=== PATIENT | male | born 1970 | race Caucasian/White ===

== ENCOUNTER 2024-11-11 10:34 | Observation (INO) ==
--- NOTE | 2024-11-11 11:08 | Emergency Department Note ---
ED DC CONDITION Conditon at Discharge Condition at Discharge: Fair Impression & Plan Atrial fibrillation with rapid ventricular response Admission ED Provider Note HPI: History obtained from patient. The patient is a 54-year-old gentleman with history of end-stage renal disease, currently on hemodialysis, who presents the emergency department with chief complaint of tachycardia. Patient states that following his dialysis session today he had some mild shortness of breath and felt like his heart was racing. He was assessed by his molder setter (Dr. Gresham) and he was told to come to the emergency department for further management. On arrival here to the ED the patient is hypotensive at 77/42, heart rate is 128, patient is alert and saturating well on room air on my initial assessment. Patient denies any chest pain. ROS: - Per HPI Differential Diagnosis: Atrial fibrillation with RVR, SVT, WPW, ventricular tachycardia, ACS, sepsis, hypotension after dialysis secondary to fluid shifts, amongst other potential pathologies. *Outpatient medications and allergy history reviewed. PE: General: Alert HEENT: Normocephalic, trachea midline Eyes: Extraocular eye movement is intact, no scleral erythema Pulmonary: Clear to auscultation bilaterally, no wheezing Cardio: Tachycardic rate with irregular rhythm GI: Abdomen is soft to palpation : No suprapubic tenderness MSK: No evidence of trauma or malformation of the extremities, no edema Skin: No evidence of rash Neuro: Alert, no focal deficits Psychiatric: Cooperative INDEPENDENT INTERPRETATIONS: environmental monitoring technician: (As interpreted by myself): - An order was placed for continuous cardiac monitoring - Patient was noted to be in atrial fibrillation with a rate of 131 EKG: (As interpreted by myself): Rate: 145 Rhythm: Atrial fibrillation with RVR Intervals: QTc 528 ms, otherwise within normal limits ST changes: No ST elevation Time: 1058 Chest x-ray: (As interpreted by myself): No acute disease Interventions provided in ED: - IV fluid bolus, IV metoprolol Medical Decision Making: Patient appeared well on arrival however he was noted to be hypotensive, he was given IV fluid bolus. Blood pressure did improve. Patient's heart rate was labile here in the ED, he did have some improvement after a dose of IV metoprolol but did have episodes of tachycardia in the 120s and 130s despite improvement in his blood pressure. Lab work shows no leukocytosis, hemoglobin is stable, platelet count is normal, CMP does not show any evidence of any critical findings, baseline end-stage renal disease is noted. Troponin is mildly elevated at 40. Suspect this is likely demand ischemia in the setting of atrial fibrillation with RVR as opposed to ACS. Patient denies any chest pain. TSH is undetectable, free T4 is within normal limits at 1.4. EKG does not show any acute ischemic changes, does suggest atrial fibrillation with RVR. Patient states he does not have any history of atrial fibrillation. I discussed the patient's presentation with on-call cardiology, Dr. Babb, following our discussion and plan will be for admission. He does recommend the patient be given anticoagulation and recommended Eliquis therefore this was ordered. Patient's presentation was discussed with the on-call midlevel provider for the [facility] and the patient was placed for admission in stable condition for new onset atrial fibrillation with RVR. Patient's heart rate did improve into the low 100s prior to admission Consultants/Discussions held with other healthcare providers: - Cardiology, - Hospitalist, Dr. Zuniga Disposition discussion held by myself with: - Patient * CRITICAL CARE TIME: ( 46 ) minutes - Stabilization of patient with tachyarrhythmia/atrial fibrillation with RVR in addition to hypotension requiring IV fluid resuscitation and rate control medications, time spent at the bedside, interpretation of EKG and other diagnostic studies, discussion with specialty physicians and arrangement of admission. Diagnosis: 1. New onset atrial fibrillation with RVR, acute 2. Fluid responsive hypotension, acute 3. History of end-stage renal disease, on dialysis 4. Elevated high-sensitivity troponin, acute Disposition: Admission Rhys Juárez DO Emergency Medicine Past Med/Surg History Problem List (Updated 11/11/24 @ 15:12 by Rhys Juárez DO) Atrial fibrillation with rapid ventricular response (Acute) Social History Smoking Status: Current every day smoker Tobacco Type: Cigarettes Preferred Language: Kittitian Feels Safe at Home: Yes Allergies Allergies Allergy/AdvReac Type Severity Reaction Status Date / Time No Known Allergies Allergy Unverified 11/11/24 13:30 Home Meds Home Medications Medication Instructions Recorded Confirmed bumetanide 2 mg tablet 4 mg PO DAILY 11/11/24 11/11/24 calcium acetate(phosphat bind) 667 266 mg PO WM 08/18/25 08/18/25 mg capsule calcium acetate(phosphat bind) 667 1,337 mg PO DIRECTED 11/11/24 11/11/24 mg tablet carvedilol 25 mg tablet 25 mg PO BID 11/11/24 11/11/24 cinacalcet 90 mg tablet 90 mg PO DAILY 11/11/24 11/11/24 furosemide 40 mg tablet 40 mg PO DAILY 11/11/24 11/11/24 gabapentin 100 mg capsule 100 mg PO DAILY 11/11/24 11/11/24 levothyroxine 25 mcg tablet 25 mcg PO DAILY 11/11/24 11/11/24 olmesartan 20 mg tablet 20 mg PO DAILY 11/11/24 11/11/24 omeprazole 20 mg capsule,delayed 20 mg PO DAILY 11/11/24 11/11/24 release sevelamer carbonate 800 mg tablet 1,600 mg PO USEASDIRECTD 11/11/24 11/11/24 sevelamer carbonate 800 mg tablet 3,200 mg PO WM 11/11/24 11/11/24 tiotropium bromide 2.5 1 inh inhalation DAILY PRN sob 11/11/24 11/11/24 mcg/actuation mist for inhalation (Spiriva Respimat) Results & Data (ED) Vital Signs Vital Signs - 24 hr 11/11/24 10:48 11/11/24 10:58 11/11/24 11:02 Temperature 36.7 C Temperature Source Temporal Artery Scan Pulse Rate 120 H Pulse Rate [Left Apical] 125 H Pulse Rate from SpO2 Sensor Respiratory Rate 20 18 Respiratory Effort / Characteristics Non-Labored Spontaneous Non-Labored Spontaneous Respiratory Depth Normal Normal Respiratory Pattern Regular Regular Blood Pressure 74/42 L Blood Pressure [Right Arm] 77/42 L 94/71 L Blood Pressure Mean 52 Blood Pressure Mean [Right Arm] 53 78 Pulse Oximetry 100 100 Oxygen Delivery Method Room Air Room Air Sepsis Recent Fever Within 48 Hours No Sepsis New/Unexplained Change in Mental Status No Sepsis Action Taken by Nursing No Action Required 11/11/24 11:02 11/11/24 11:09 11/11/24 11:21 Temperature Temperature Source Pulse Rate 128 H 128 H 121 H Pulse Rate [Left Apical] Pulse Rate from SpO2 Sensor Respiratory Rate 22 15 Respiratory Effort / Characteristics Respiratory Depth Respiratory Pattern Blood Pressure 107/59 L 94/64 L Blood Pressure [Right Arm] Blood Pressure Mean 75 74 Blood Pressure Mean [Right Arm] Pulse Oximetry 100 100 Oxygen Delivery Method Room Air Room Air Sepsis Recent Fever Within 48 Hours Sepsis New/Unexplained Change in Mental Status Sepsis Action Taken by Nursing 11/11/24 11:33 11/11/24 11:53 11/11/24 12:00 Temperature Temperature Source Pulse Rate 115 H 117 H 111 H Pulse Rate [Left Apical] Pulse Rate from SpO2 Sensor Respiratory Rate 18 23 Respiratory Effort / Characteristics Respiratory Depth Respiratory Pattern Blood Pressure 92/58 L 86/55 L 88/70 L Blood Pressure [Right Arm] Blood Pressure Mean 69 76 Blood Pressure Mean [Right Arm] Pulse Oximetry 97 97 Oxygen Delivery Method Room Air Room Air Sepsis Recent Fever Within 48 Hours Sepsis New/Unexplained Change in Mental Status Sepsis Action Taken by Nursing 11/11/24 12:12 11/11/24 12:21 11/11/24 12:27 Temperature Temperature Source Pulse Rate 123 H 124 H 132 H Pulse Rate [Left Apical] Pulse Rate from SpO2 Sensor Respiratory Rate 20 16 17 Respiratory Effort / Characteristics Respiratory Depth Respiratory Pattern Blood Pressure 96/72 L 121/90 Blood Pressure [Right Arm] Blood Pressure Mean 80 100 Blood Pressure Mean [Right Arm] Pulse Oximetry 94 94 94 Oxygen Delivery Method Room Air Room Air Room Air Sepsis Recent Fever Within 48 Hours Sepsis New/Unexplained Change in Mental Status Sepsis Action Taken by Nursing 11/11/24 12:30 11/11/24 12:45 11/11/24 12:54 Temperature Temperature Source Pulse Rate 111 H 109 H 126 H Pulse Rate [Left Apical] Pulse Rate from SpO2 Sensor Respiratory Rate 16 17 13 Respiratory Effort / Characteristics Respiratory Depth Respiratory Pattern Blood Pressure 117/88 110/71 Blood Pressure [Right Arm] Blood Pressure Mean 91 90 Blood Pressure Mean [Right Arm] Pulse Oximetry 95 96 98 Oxygen Delivery Method Room Air Room Air Room Air Sepsis Recent Fever Within 48 Hours Sepsis New/Unexplained Change in Mental Status Sepsis Action Taken by Nursing 11/11/24 12:57 11/11/24 13:00 11/11/24 13:06 Temperature Temperature Source Pulse Rate 110 H 125 H Pulse Rate [Left Apical] Pulse Rate from SpO2 Sensor Respiratory Rate 14 21 Respiratory Effort / Characteristics Respiratory Depth Respiratory Pattern Blood Pressure 105/74 Blood Pressure [Right Arm] Blood Pressure Mean 80 Blood Pressure Mean [Right Arm] Pulse Oximetry 97 98 Oxygen Delivery Method Room Air Room Air Sepsis Recent Fever Within 48 Hours Sepsis New/Unexplained Change in Mental Status Sepsis Action Taken by Nursing 11/11/24 13:12 11/11/24 13:15 11/11/24 13:15 Temperature Temperature Source Pulse Rate 111 H 116 H Pulse Rate [Left Apical] Pulse Rate from SpO2 Sensor 104 H 114 H Respiratory Rate 17 19 Respiratory Effort / Characteristics Respiratory Depth Respiratory Pattern Blood Pressure 95/66 L Blood Pressure [Right Arm] Blood Pressure Mean 71 Blood Pressure Mean [Right Arm] Pulse Oximetry 92 95 Oxygen Delivery Method Sepsis Recent Fever Within 48 Hours Sepsis New/Unexplained Change in Mental Status Sepsis Action Taken by Nursing 11/11/24 13:18 11/11/24 13:24 11/11/24 13:27 Temperature Temperature Source Pulse Rate 115 H 121 H Pulse Rate [Left Apical] Pulse Rate from SpO2 Sensor 111 H 111 H Respiratory Rate 17 12 Respiratory Effort / Characteristics Respiratory Depth Respiratory Pattern Blood Pressure 103/67 Blood Pressure [Right Arm] Blood Pressure Mean 76 Blood Pressure Mean [Right Arm] Pulse Oximetry 95 100 Oxygen Delivery Method Sepsis Recent Fever Within 48 Hours Sepsis New/Unexplained Change in Mental Status Sepsis Action Taken by Nursing 11/11/24 13:36 Temperature Temperature Source Pulse Rate 108 H Pulse Rate [Left Apical] Pulse Rate from SpO2 Sensor 125 H Respiratory Rate 14 Respiratory Effort / Characteristics Respiratory Depth Respiratory Pattern Blood Pressure Blood Pressure [Right Arm] Blood Pressure Mean Blood Pressure Mean [Right Arm] Pulse Oximetry 98 Oxygen Delivery Method Sepsis Recent Fever Within 48 Hours Sepsis New/Unexplained Change in Mental Status Sepsis Action Taken by Nursing Laboratory Data 11/11/24 11:00 11/11/24 11:00 Lab Results 11/11/24 11/11/24 11/11/24 Range/Units 11:00 11:05 12:48 WBC 5.81 (4.8-10.8) K/ul RBC 3.84 L (4.70-6.10) M/uL Hgb 11.8 L (14.0-18.0) g/dl POC Hgb 11.9 L (14.0-18.0) g/dl Hct 35.4 L (42.0-52.0) % POC Hct 35 L (42-52) % MCV 92.2 (80.0-100.0) fL MCH 30.7 (25.0-34.0) pg MCHC 33.3 (32.0-36.0) g/dL RDW Std Deviation 49.2 H (36.4-46.3) fL RDW Coeff of Lorenza 14.6 H (11.5-14.5) % Plt Count 157 (130-400) K/uL MPV 11.0 (9.4-12.4) fL Immature Gran % (Auto) 0.2 % Neut % (Auto) 73.6 % Lymph % (Auto) 20.3 % [place] % (Auto) 4.0 % Eos % (Auto) 1.4 % Baso % (Auto) 0.5 % Neut # (Auto) 4.28 (1.40-6.50) K/uL Lymph # (Auto) 1.18 L (1.20-3.40) K/uL [place] # (Auto) 0.23 (0.11-0.59) K/uL Eos # (Auto) 0.08 (0.00-0.50) K/uL Baso # (Auto) 0.03 (0.00-0.20) K/uL Immature Gran # (Auto) 0.01 (0.01-0.20) K/uL POC Sodium 137 (135-144) mmol/L Sodium 137 (136-145) mmol/L POC Potassium 3.4 (3.3-5.0) mmol/L Potassium 3.4 L (3.5-5.1) mmol/L POC Chloride 89 L (101-112) mmol/L Chloride 89 L (98-107) mmol/L Carbon Dioxide 38 H (21-32) mmol/L POC Total CO2 33 H (24-31) mmol/L Anion Gap 10 (3-11) POC Anion Gap 19.0 (16-25) mmol/L POC BUN 21 H (7-18) mg/dl BUN 23 (6-23) mg/dl Creatinine 6.19 H* (0.6-1.4) mg/dl POC Creatinine 6.3 H* (0.6-1.3) mg/dl Est Cr Clr Drug Dosing 16.5 ml/min eGFR 10.10 BUN/Creatinine Ratio 3.7 L (10-20) Glucose 153 H (70-99(Fasting)) mg/dl POC Glucose (other) 152 H (70-99) mg/dl Calcium 8.7 (8.6-10.3) mg/dl POC Ioniz Calcium Roland 0.96 L (1.12-1.32) mmol/l Magnesium 2.5 H (1.7-2.4) mg/dl Total Bilirubin 0.6 (0.2-1.0) mg/dl AST 8 L (13-39) U/L ALT 8 (7-52) U/L Alkaline Phosphatase 121 H (34-104) U/L Troponin I High Sens 40.5 H 34.9 H (0-20) pg/ml Total Protein 7.6 (6.0-8.3) gm/dl Albumin 4.2 (3.4-5.0) gm/dl Globulin 3.4 (2.5-4.0) gm/dl Albumin/Globulin Ratio 1.2 (0.9-2) Lipase 27 (11-82) U/L TSH < 0.010 L (0.300-4.500) uIu/ml Free T4 1.44 (0.61-1.60) ng/dl Administered Medications Discontinued Medications Apixaban (Apixaban 5 Mg Tablet) 5 mg PO ONE ONE Stop: 11/11/24 13:08 Last Admin: 11/11/24 14:17 Dose: 5 mg Documented By: GABRIELE Sodium Chloride (Nss) 1,000 mls @ 999 mls/hr IV .Q1H1M STA Stop: 11/11/24 12:01 Last Infusion: 11/11/24 11:59 Dose: Infused Documented By: Infusion: 11/11/24 11:45 Dose: 0 mls/hr Documented By: [facility] Admin: 11/11/24 11:09 Dose: 999 mls/hr Documented By: [facility] Metoprolol Tartrate (Metoprolol Tartrate 1 Mg/Ml Vial) 5 mg IV NOW STA Stop: 11/11/24 11:18 Last Admin: 11/11/24 11:20 Dose: 5 mg Documented By: [facility] Imaging Data Radiologist's Impression: Chest X-Ray 11/11/24 11:01 XR chest 1V portable CLINICAL HISTORY: Chest pain, nonspecific COMPARISON STUDY: None FINDINGS: Heart size and pulmonary vasculature are normal. No consolidation or pleural effusion. No pneumothorax. IMPRESSION: No acute findings. ACT 112: Negative or not required by law. Electronically signed by: Ervin Chaidez M.D. 11/11/2024 11:14 AM Discharge Plan Visit Data Chief Complaint: Cardiac Assessment Stated Complaint: A FIB, REF BY DOC ED Provider: Rhys Juárez Discharge Problem: Atrial fibrillation with rapid ventricular response Patient Disposition: Admitted As Inpatient Condition: Fair Discharge Instructions Interventions: ED Discharge Assessment Last Done: 11/11/24 14:32
[2024-11-11] MEDS: SODIUM CHLORIDE 0.9% 1,000 ML IV STA (11:09)
--- NOTE | 2024-11-11 11:16 | XRay Report ---
XR chest 1V portable CLINICAL HISTORY: Chest pain, nonspecific COMPARISON STUDY: None FINDINGS: Heart size and pulmonary vasculature are normal. No consolidation or pleural effusion. No p neumothorax. IMPRESSION: No acute findings. ACT 112: Negative or not required by law. Electronically signed by: Ervin Chaidez M.D. 11/11/2024 11:14 AM
[2024-11-11] MEDS: METOPROLOL TARTRATE 1 MG/ML VIAL IV STA (11:20)
[2024-11-11 11:37] LABS: Hematocrit (blood only) 35.4 % (42.0-52.0); Hemoglobin 11.8 g/dl (14.0-18.0); Immature Granulocytes # (auto) 0.01 K/uL (0.01-0.20); Immature Granulocytes % (auto) 0.2 %; Mean Corpuscular Hemoglobin 30.7 pg (25.0-34.0); Mean Corpuscular Volume 92.2 fL (80.0-100.0); Platelet Count 157 K/uL (130-400); RDW Standard Deviation 49.2 fL (36.4-46.3); Red Blood Count 3.84 M/uL (4.70-6.10); White Blood Count 5.81 K/ul (4.8-10.8)
[2024-11-11 12:11] LABS: Alanine Aminotransferase 8 U/L (7-52); Albumin Globulin Ratio 1.2 (0.9-2); Alkaline Phosphatase 121 U/L (34-104); Anion Gap 10 (3-11); Bilirubin,Total 0.6 mg/dl (0.2-1.0); Blood Urea Nitrogen 23 mg/dl (6-23); Calcium 8.7 mg/dl (8.6-10.3); Carbon Dioxide 38 mmol/L (21-32); Chloride 89 mmol/L (98-107); Creatinine Clr Calc Pharmacy 16.5 ml/min; Globulin 3.4 gm/dl (2.5-4.0); Glucose 153 mg/dl (70-99(Fasting)); Lipase 27 U/L (11-82); Magnesium 2.5 mg/dl (1.7-2.4); Potassium 3.4 mmol/L (3.5-5.1); Sodium 137 mmol/L (136-145); Thyroid Stimulating Hormone < 0.010 uIu/ml (0.300-4.500); Total Protein 7.6 gm/dl (6.0-8.3)
--- NOTE | 2024-11-11 13:17 | History & Physical Report ---
"Date of Service November 11, 2024 Assessment & Plan (1) Atrial fibrillation with rapid ventricular response: (2) Elevated troponin: (3) End-stage renal disease on hemodialysis: (4) History of gastric ulcer: Plan Dixon is a 54M with PMHx of ESRD of Dialysis, hx of gastric ulcer and HTN who presents with new onset afib RVR. #Afib RVR | Elevated troponin New onset - EKG AFIB RVR rate 145 Troponin peaked at 40, suspect demand ischemia plus poor renal clearance from afib RVR Started on Eliquis Cardiology consulted - given metoprolol and digoxin. Stopped carvedilol. Consult note pending TSH low, T4 normal - continue synthroid #ESRD on Dialysis Nephrology consulted - follows with Dr. Bowers, dialysis diet, nephrocap daily Continue Phosphate binder, cinacalcet and renvela Continue Bumex and lasix #HTN Continue Carvedilol Hold amlodipine and olmesartan with hypotension, room to change rate control if needed #hx of gastric ulcer continue PPI monitor for bleeding with initation of quinn Dispo: admit to PCU dvt proh: eliquis History of Present Illness Chief Complaint: afib RVR Primary Care Provider: NO PCP Dixon is a 54M with PMHx of ESRD of Dialysis, and HTN who presents with new onset afib RVR. Reports that his watch was alerting him to abnormal HR on monday. Did feel lightheaded with position changes during this also with poor appetite. Denies hx of afib. Reports in the ER he is feeling fine and reluctant to stay overnight in the hospital. Denies CP or shortness of breath. torsten from [place] works locally in [employer]. ER course: Eliquis PO 5mg x 1 Metoprolol 5mg IV Allergies Allergy/AdvReac Type Severity Reaction Status Date / Time No Known Allergies Allergy Unverified 11/11/24 13:30 Home Medications Medication Instructions Recorded Confirmed Type bumetanide 2 mg tablet 4 mg PO DAILY 11/11/24 11/11/24 History calcium acetate(phosphat bind) 667 266 mg PO WM 11/11/24 11/11/24 History mg capsule calcium acetate(phosphat bind) 667 1,337 mg PO DIRECTED 11/11/24 11/11/24 History mg tablet carvedilol 25 mg tablet 25 mg PO BID 11/11/24 11/11/24 History cinacalcet 90 mg tablet 90 mg PO DAILY 11/11/24 11/11/24 History furosemide 40 mg tablet 40 mg PO DAILY 11/11/24 11/11/24 History gabapentin 100 mg capsule 100 mg PO DAILY 11/11/24 11/11/24 History levothyroxine 25 mcg tablet 25 mcg PO DAILY 11/11/24 11/11/24 History olmesartan 20 mg tablet 20 mg PO DAILY 11/11/24 11/11/24 History omeprazole 20 mg capsule,delayed 20 mg PO DAILY 11/11/24 11/11/24 History release sevelamer carbonate 800 mg tablet 1,600 mg PO USEASDIRECTD 11/11/24 11/11/24 History sevelamer carbonate 800 mg tablet 3,200 mg PO WM 11/11/24 11/11/24 History tiotropium bromide 2.5 1 inh inhalation DAILY PRN sob 11/11/24 11/11/24 History mcg/actuation mist for inhalation (Spiriva Respimat) Past Med/Surg History Problem List (Updated 11/11/24 @ 17:20 by Juwan Pacheco MD) Iron deficiency anemia Elevated troponin Abdominal hernia as complication of peritoneal dialysis History of gastric ulcer Hypothyroidism End-stage renal disease on hemodialysis Atrial fibrillation with rapid ventricular response (Acute) Social History Smoking Status: Current every day smoker Tobacco Type: Cigarettes Hx Alcohol Use: No Hx Substance Use: No Preferred Language: Chadian Plumber Cub Required: No Beliefs That Will Affect Care: None Current Living Situation: Alone Other Information That Helps Us Care for You: No Feels Safe at Home: Yes Safety Concerns: Feels Safe At This Time Assistive Devices: Glasses Review of Systems Review of Systems: All systems reviewed & are unremarkable except as noted in Subjective Physical Exam Physical Exam: General: NAD, VS as above Resp: normal respiratory effort, lungs clear to auscultation CV: afib, rates 120s , no murmur, Abd: normal bowel sounds, non tender, no hepatosplenomegaly Extremities: Moves all extremities, no LE edema Neuro: A&O x3, Results & Data Results & Data Vital Signs (Past 12 Hours) Vital Signs Temp Pulse Pulse Resp BP BP Pulse Ox 11/11/24 13:06 125 H 21 98 11/11/24 13:00 105/74 11/11/24 12:57 110 H 14 97 11/11/24 12:54 126 H 13 98 11/11/24 12:45 109 H 17 110/71 96 11/11/24 12:30 111 H 16 117/88 95 11/11/24 12:27 132 H 17 94 11/11/24 12:21 124 H 16 121/90 94 11/11/24 12:12 123 H 20 96/72 L 94 11/11/24 12:00 111 H 23 88/70 L 97 11/11/24 11:53 117 H 86/55 L 11/11/24 11:33 115 H 18 92/58 L 97 11/11/24 11:21 121 H 15 94/64 L 100 11/11/24 11:09 128 H 22 107/59 L 100 11/11/24 11:02 128 H 11/11/24 11:02 125 H 18 94/71 L 100 11/11/24 10:58 77/42 L 11/11/24 10:48 98.1 F 120 H 20 74/42 L 100 O2 Del Method 11/11/24 13:06 Room Air 11/11/24 13:00 11/11/24 12:57 Room Air 11/11/24 12:54 Room Air 11/11/24 12:45 Room Air 11/11/24 12:30 Room Air 11/11/24 12:27 Room Air 11/11/24 12:21 Room Air 11/11/24 12:12 Room Air 11/11/24 12:00 Room Air 11/11/24 11:53 11/11/24 11:33 Room Air 11/11/24 11:21 Room Air 11/11/24 11:09 Room Air 11/11/24 11:02 11/11/24 11:02 Room Air 11/11/24 10:58 11/11/24 10:48 Room Air Laboratory Results cbc and chemistry reviewed trop reviewed TSH reviewed Supervising Physician Co-Signing Physician Notes The patient was not seen by me. The chart was reviewed. Case discussed with PAOLA Gonzáles. Agree with assessment and plan PG Care Time/CCT Total # of Minutes Spent Total Time Spent with Patient: Total time spent is greater than 50% in coordination of care (as documented) at patient's floor/unit and/or counseling patient: Coding Level of Care Code 04183 INT INP/OBS CARE MIN Diagnoses Atrial fibrillation with rapid ventricular response I48.91 Elevated troponin R79.89 End-stage renal disease on hemodialysis N18.6; Z99.2 History of gastric ulcer Z87.11"
[2024-11-11] MEDS: APIXABAN 5 MG TABLET PO ONE (14:17)
[2024-11-11] MEDS ORDERED: ACETAMINOPHEN 325 MG TAB PO PRN (15:21)
[2024-11-11] MEDS ORDERED: POLYETHYLENE (MIRALAX) 17 GM PACK PO PRN (15:21)
--- NOTE | 2024-11-11 16:42 | Cardiology Consultation ---
Date of Consultation November 11, 2024 Assessment & Plan (1) Atrial fibrillation with rapid ventricular response: (2) Anticoagulant long-term use: (3) Elevated troponin: Plan 1. Atrial fibrillation: He presents with what appears to be relatively recent onset of atrial fibrillation at a rapid heart rate. Based on symptoms it seems that it is at least 3 days in duration, possibly longer. It may also be paroxysmal although at rest in the hospital in bed he is not aware of the rhythm so when he feels that he is not having the arrhythmia he may still be having it. He has not had paroxysmal atrial fibrillation in the hospital, so it may be persistent. At this point I would try rate control, despite some degree of hypotension I would like to get him on beta-blockers for rate control and I am going to switch from carvedilol to metoprolol succinate. I will make that swi tch this evening at a roughly comparable dose but we may get better rate control with that. I am also going to add digoxin to his regimen. 2. Anticoagulation: He will need long-term anticoagulation, I agree with the use of Eliquis. 3. Elevated troponin: His troponin is minimally elevated, but we may need to investigate it, as far as I know he does not have a history of coronary artery disease but certainly could have it. 4. Hypotension, his blood pressure is somewhat low which is unusual for him based on his history, he is on a number of antihypertensives and this may be related to his atrial arrhythmia. I would like to get an echocardiogram. History of Present Illness Reason for Consultation: Atrial fibrillation Attending Physician: Rudy Zuniga MD History of Present Illness This is a 54-year-old male who splits his time between [place] when here (he works on [employer] so spends most of his time away from his home in [place]). 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 In general his blood pressure is reasonably well-controlled, sometimes high, but generally not low until recently. He has noticed an increased heart rate possibly for 2 weeks, although it is not clear. The first clear identification of a fast heart rate was 3 days prior to this visit when at dialysis he was told his heart rate was very fast b ut nothing was done about it. His blood pressure was somewhat low at that time, which sounds unusual for him, but he went to dialysis today where he was identified as having atrial fibrillation and he came into the emergency room for evaluation of this. He was found to be significantly hypotensive here with a rapid heart rate in atrial fibrillation. He is not on any anticoagulant. He is not as active as he used to be, he has a managerial position and although he does try to get out and walk around the field most days he does not exertion himself strenuously as he wants did. He does not have exertional chest discomfort however and does not have heart failure symptoms. An electrocardiogram here demonstrates atrial fibrillation with a heart rate of [address]-T abnormalities. Laboratory studies are notable for anemia consistent with his kidney disease as well as some electrolyte abnormalities also consistent with his kidney disease and he does have an elevated glucose. High-sensitivity troponin measurements are somewhat high (40 and 35) and his TSH is very low although his free T4 is normal. His chest x-ray is unremarkable. Allergies Allergy/AdvReac Type Severity Reaction Status Date / Time No Known Allergies Allergy Unverified 11/11/24 13:30 Home Medications Medication Instructions Recorded Confirmed Type bumetanide 2 mg tablet 4 mg PO DAILY 11/11/24 11/11/24 History calcium acetate(phosphat bind) 667 266 mg PO WM 11/11/24 11/11/24 History mg capsule calcium acetate(phosphat bind) 667 1,337 mg PO DIRECTED 11/11/24 11/11/24 History mg tablet carvedilol 25 mg tablet 25 mg PO BID 11/11/24 11/11/24 History cinacalcet 90 mg tablet 90 mg PO DAILY 11/11/24 11/11/24 History furosemide 40 mg tablet 40 mg PO DAILY 11/11/24 11/11/24 History gabapentin 100 mg capsule 100 mg PO DAILY 11/11/24 11/11/24 History levothyroxine 25 mcg tablet 25 mcg PO DAILY 11/11/24 11/11/24 History olmesartan 20 mg tablet 20 mg PO DAILY 11/11/24 11/11/24 History omeprazole 20 mg capsule,delayed 20 mg PO DAILY 11/11/24 11/11/24 History release sevelamer carbonate 800 mg tablet 1,600 mg PO USEASDIRECTD 11/11/24 11/11/24 History sevelamer carbonate 800 mg tablet 3,200 mg PO WM 11/11/24 11/11/24 History tiotropium bromide 2.5 1 inh inhalation DAILY PRN sob 11/11/24 11/11/24 History mcg/actuation mist for inhalation (Spiriva Respimat) Patient History Social History Smoking Status: Current every day smoker Tobacco Type: Cigarettes Hx Alcohol Use: No Hx Substance Use: No Preferred Language: Irish Customer Engagement Analyst Required: No Beliefs That Will Affect Care: None Current Living Situation: Alone Other Information That Helps Us Care for You: No Feels Safe at Home: Yes Safety Concerns: Feels Safe At This Time Assistive Devices: Glasses Review of Systems Review of Systems: All systems reviewed & are unremarkable except as noted in HPI & below Physical Exam Physical Exam: Constitutional: Alert, cooperative and in no distress. HEENT: Unremarkable Neck: No jugular venous distention, carotid pulses are normal and equal bilaterally without bruits. Pulmonary: Clear to auscultation bilaterally. Cardiac: Regular rhythm with no murmur, gallop or rub. Abdomen: Soft, nontender with normal bowel sounds. Extremities: No edema. Hemodialysis access on the left arm. Neurologic: No focal findings. Gait is steady. Skin: No rash, ecchymoses or petechiae. Results & Data Vital Signs (Past 12 Hours) Vital Signs Temp Pulse Pulse Resp BP BP Pulse Ox 11/11/24 14:50 11/11/24 14:50 36.4 C L 96 H 18 96/67 L 96 11/11/24 14:50 121 H 11/11/24 14:15 111/77 11/11/24 14:15 130 H 15 95 11/11/24 14:00 102/71 11/11/24 13:45 92/76 L 11/11/24 13:42 119 H 16 97 11/11/24 13:36 108 H 14 98 11/11/24 13:27 121 H 12 100 11/11/24 13:24 103/67 11/11/24 13:18 115 H 17 95 11/11/24 13:15 116 H 19 95 11/11/24 13:15 95/66 L 11/11/24 13:12 111 H 17 92 11/11/24 13:06 125 H 21 98 11/11/24 13:00 105/74 11/11/24 12:57 110 H 14 97 11/11/24 12:54 126 H 13 98 11/11/24 12:45 109 H 17 110/71 96 11/11/24 12:30 111 H 16 117/88 95 11/11/24 12:27 132 H 17 94 11/11/24 12:21 124 H 16 121/90 94 11/11/24 12:12 123 H 20 96/72 L 94 11/11/24 12:00 111 H 23 88/70 L 97 11/11/24 11:53 117 H 86/55 L 11/11/24 11:33 115 H 18 92/58 L 97 11/11/24 11:21 121 H 15 94/64 L 100 11/11/24 11:09 128 H 22 107/59 L 100 11/11/24 11:02 128 H 11/11/24 11:02 125 H 18 94/71 L 100 11/11/24 10:58 77/42 L 11/11/24 10:48 36.7 C 120 H 20 74/42 L 100 O2 Del Method 11/11/24 14:50 Room Air 11/11/24 14:50 Room Air 11/11/24 14:50 11/11/24 14:15 11/11/24 14:15 11/11/24 14:00 11/11/24 13:45 11/11/24 13:42 11/11/24 13:36 11/11/24 13:27 11/11/24 13:24 11/11/24 13:18 11/11/24 13:15 11/11/24 13:15 11/11/24 13:12 11/11/24 13:06 Room Air 11/11/24 13:00 11/11/24 12:57 Room Air 11/11/24 12:54 Room Air 11/11/24 12:45 Room Air 11/11/24 12:30 Room Air 11/11/24 12:27 Room Air 11/11/24 12:21 Room Air 11/11/24 12:12 Room Air 11/11/24 12:00 Room Air 11/11/24 11:53 11/11/24 11:33 Room Air 11/11/24 11:21 Room Air 11/11/24 11:09 Room Air 11/11/24 11:02 11/11/24 11:02 Room Air 11/11/24 10:58 11/11/24 10:48 Room Air Laboratory Results Cardiac Enzymes 11/11/24 11/11/24 Range/Units 11:00 12:48 AST 8 L (13-39) U/L Troponin I High Sens 40.5 H 34.9 H (0-20) pg/ml CBC 11/11/24 Range/Units 11:00 WBC 5.81 (4.8-10.8) K/ul RBC 3.84 L (4.70-6.10) M/uL Hgb 11.8 L (14.0-18.0) g/dl Hct 35.4 L (42.0-52.0) % Plt Count 157 (130-400) K/uL Neut # (Auto) 4.28 (1.40-6.50) K/uL Lymph # (Auto) 1.18 L (1.20-3.40) K/uL Robeson # (Auto) 0.23 (0.11-0.59) K/uL Eos # (Auto) 0.08 (0.00-0.50) K/uL Baso # (Auto) 0.03 (0.00-0.20) K/uL Comprehensive Metabolic Panel 11/11/24 Range/Units 11:00 Sodium 137 (136-145) mmol/L Potassium 3.4 L (3.5-5.1) mmol/L Chloride 89 L (98-107) mmol/L Carbon Dioxide 38 H (21-32) mmol/L BUN 23 (6-23) mg/dl Creatinine 6.19 H* (0.6-1.4) mg/dl Glucose 153 H (70-99(Fasting)) mg/dl Calcium 8.7 (8.6-10.3) mg/dl AST 8 L (13-39) U/L ALT 8 (7-52) U/L Alkaline Phosphatase 121 H (34-104) U/L Total Protein 7.6 (6.0-8.3) gm/dl Albumin 4.2 (3.4-5.0) gm/dl Intake and Output 11/11/24 11/11/24 11/11/24 06:59 14:59 22:59 Intake Total 500 / 500 Balance 500 / 500 Intake: IV 500 / 500 Sodium Chloride 0.9% 1,000 ml @ 500 / 500 999 mls/hr IV .Q1H1M STA Rx#: [id number] Other: Weight 96.275 kg Weight Measurement Method Chair Scale Patient Weight 11/12/24 06:59 Weight 96.275 kg Diagnostic Findings Telemetry: Atrial fibrillation with a rapid heart rate, averaging around 120 bpm. PG Care Time/CCT Total # of Minutes Spent Total Time Spent with Patient: Total time spent is greater than 50% in coordination of care (as documented) at patient's floor/unit and/or counseling patient: Coding Level of Care Code 81815 INT INP/OBS CARE 3/75MIN Diagnoses Atrial fibrillation with rapid ventricular response I48.91 Anticoagulant long-term use Z79.01 Elevated troponin R79.89
--- NOTE | 2024-11-11 16:43 | Nephrology Consultation ---
Date of Consultation November 11, 2024 Assessment & Plan (1) End-stage renal disease on hemodialysis: * Patient was dialyzed this morning. Electrolyte balance is acceptable. No acute indication for HD at this time * Outpatient HD prescription: [facility] Hussein MWF FX CorAL 80, 3.5 hr, Qb 475, 2K 2Ca 1Mg Na 138 HCO3 37 EDW 96kg * Protect dialysis access - L upper arm AVF created 06/06/20 * Recommend HD diet * Provide Nephrocap daily * Monitor daily BMP (2) Atrial fibrillation with rapid ventricular response: * Management as per cardiology * Started on apixaban therapy * Continue PPI therapy due to history of MILLICENT (3) Hypothyroidism: * TSH undetectable at time of admission, free T4 within normal limits (4) Abdominal hernia as complication of peritoneal dialysis: * h/o periumbilical hernia (5) Iron deficiency anemia: * h/o MILLICENT. Reports negative EGD and colonoscopy. Has been on chronic PPI therapy History of Present Illness Reason for Consultation: ESKD-D Attending Physician: Rudy Zuniga MD History of Present Illness Mr. Rodrigez is a 54-year-old white male who is seen at the request of the [facility] hospitalist service to provide inpatient hemodialysis and assist with medical management. Information for the HPI is obtained from direct patient interview and review of the EMR. HPI summarized as follows: Mr. 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 Initially he was on peritoneal dialysis for 2.5 years. This was complicated by the development of an abdominal hernia. He transitioned to IHD 2018. Mr. Rodrigez currently dialyzes at [facility] (MWF FX CorAL 80, 3.5 hr, Qb 475, 2K 2Ca 1Mg Na 138 HCO3 37 EDW 96kg). He last dialyzed this morning. Review of treatment notes shows that at the completion of treatment he was hypotensive and tachycardic with an irregular heart rhythm. Mr. Rodrigez was subsequently transferred to [facility] for evaluation of new onset atrial fibrillation. According to the dialysis note, Mr. Rodrigez did have an episode of paroxysmal atrial fibrillation in 2023. He was on anticoagulation therapy for short period of time but this was subsequently stopped due to MILLICENT. EGD and colonoscopy were negative and patient was started on chronic PPI therapy. Mr. Rodrigez has been scheduled for a transthoracic echocardiogram. Also he was recently scheduled for AYESHA evaluation of lower extremities due to neuropathy/musculoskeletal pain. Mr. Rodrigez medical history is also significant for hypothyroidism, gastric ulcer. Upon presentation to the [facility] this afternoon Mr. Rodrigez was noted to have SBP mid 70s, HR [id number]. He received 1 L 0.9 NS bolus as well as IV metoprolol. Troponin was mildly elevated at 40, TSH was undetectable, free T4 wnl. ECG revealed atrial fibrillation with RVR. Cardiology has been consulted. Patient has been started on apixaban therapy. Allergies Allergy/AdvReac Type Severity Reaction Status Date / Time No Known Allergies Allergy Unverified 11/11/24 13:30 Home Medications Medication Instructions Recorded Confirmed Type bumetanide 2 mg tablet 4 mg PO DAILY 11/11/24 11/11/24 History calcium acetate(phosphat bind) 667 266 mg PO WM 11/11/24 11/11/24 History mg capsule calcium acetate(phosphat bind) 667 1,337 mg PO DIRECTED 11/11/24 11/11/24 History mg tablet carvedilol 25 mg tablet 25 mg PO BID 11/11/24 11/11/24 History cinacalcet 90 mg tablet 90 mg PO DAILY 11/11/24 11/11/24 History furosemide 40 mg tablet 40 mg PO DAILY 11/11/24 11/11/24 History gabapentin 100 mg capsule 100 mg PO DAILY 11/11/24 11/11/24 History levothyroxine 25 mcg tablet 25 mcg PO DAILY 11/11/24 11/11/24 History olmesartan 20 mg tablet 20 mg PO DAILY 11/11/24 11/11/24 History omeprazole 20 mg capsule,delayed 20 mg PO DAILY 11/11/24 11/11/24 History release sevelamer carbonate 800 mg tablet 1,600 mg PO USEASDIRECTD 11/11/24 11/11/24 History sevelamer carbonate 800 mg tablet 3,200 mg PO WM 11/11/24 11/11/24 History tiotropium bromide 2.5 1 inh inhalation DAILY PRN sob 11/11/24 11/11/24 History mcg/actuation mist for inhalation (Spiriva Respimat) Patient History Social History Smoking Status: Current every day smoker Tobacco Type: Cigarettes Hx Alcohol Use: No Hx Substance Use: No Preferred Language: Czech 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 Beliefs That Will Affect Care: None Current Living Situation: Alone Other Information That Helps Us Care for You: No Feels Safe at Home: Yes Safety Concerns: Feels Safe At This Time Assistive Devices: Glasses Review of Systems Constitutional: no fever Eyes: no problem reported Ear, Nose, Mouth, Throat: no problem reported Respiratory: no cough and no dyspnea Cardiovascular: + palpitations; no chest pain Gastrointestinal: no abdominal pain, no nausea, no vomiting and no diarrhea/loose stools Integumentary: no rash Neurologic: no problem reported Physical Exam Constitutional: no acute distress Eyes: PERRL, conjunctivae normal, anicteric sclerae ENMT: external ear and nose normal, oropharynx normal Neck: trachea midline, no thyromegaly Respiratory: normal respiratory effort, lungs clear to auscultation Cardiovascular: Rate/Rhythm: + tachycardic and + irregularly irregular Gastrointestinal (Abdomen): normal bowel sounds, soft, nontender, no hepatosplenomegaly Skin: no rashes, warm and dry Neurologic: no focal motor deficits Results & Data Vital Signs (Past 12 Hours) Vital Signs Temp Pulse Pulse Resp BP BP Pulse Ox 11/11/24 14:50 11/11/24 14:50 36.4 C L 96 H 18 96/67 L 96 11/11/24 14:50 121 H 11/11/24 14:15 111/77 11/11/24 14:15 130 H 15 95 11/11/24 14:00 102/71 11/11/24 13:45 92/76 L 11/11/24 13:42 119 H 16 97 11/11/24 13:36 108 H 14 98 11/11/24 13:27 121 H 12 100 11/11/24 13:24 103/67 11/11/24 13:18 115 H 17 95 11/11/24 13:15 116 H 19 95 11/11/24 13:15 95/66 L 11/11/24 13:12 111 H 17 92 11/11/24 13:06 125 H 21 98 11/11/24 13:00 105/74 11/11/24 12:57 110 H 14 97 11/11/24 12:54 126 H 13 98 11/11/24 12:45 109 H 17 110/71 96 11/11/24 12:30 111 H 16 117/88 95 11/11/24 12:27 132 H 17 94 11/11/24 12:21 124 H 16 121/90 94 11/11/24 12:12 123 H 20 96/72 L 94 11/11/24 12:00 111 H 23 88/70 L 97 11/11/24 11:53 117 H 86/55 L 11/11/24 11:33 115 H 18 92/58 L 97 11/11/24 11:21 121 H 15 94/64 L 100 11/11/24 11:09 128 H 22 107/59 L 100 11/11/24 11:02 128 H 11/11/24 11:02 125 H 18 94/71 L 100 11/11/24 10:58 77/42 L 11/11/24 10:48 36.7 C 120 H 20 74/42 L 100 O2 Del Method 11/11/24 14:50 Room Air 11/11/24 14:50 Room Air 11/11/24 14:50 11/11/24 14:15 11/11/24 14:15 11/11/24 14:00 11/11/24 13:45 11/11/24 13:42 11/11/24 13:36 11/11/24 13:27 11/11/24 13:24 11/11/24 13:18 11/11/24 13:15 11/11/24 13:15 11/11/24 13:12 11/11/24 13:06 Room Air 11/11/24 13:00 11/11/24 12:57 Room Air 11/11/24 12:54 Room Air 11/11/24 12:45 Room Air 11/11/24 12:30 Room Air 11/11/24 12:27 Room Air 11/11/24 12:21 Room Air 11/11/24 12:12 Room Air 11/11/24 12:00 Room Air 11/11/24 11:53 11/11/24 11:33 Room Air 11/11/24 11:21 Room Air 11/11/24 11:09 Room Air 11/11/24 11:02 11/11/24 11:02 Room Air 11/11/24 10:58 11/11/24 10:48 Room Air Laboratory Results Laboratory Results WBC 5.81 K/ul (4.8-10.8) 11/11/24 11:00 RBC 3.84 M/uL (4.70-6.10) L 11/11/24 11:00 Hgb 11.8 g/dl (14.0-18.0) L 11/11/24 11:00 POC Hgb 11.9 g/dl (14.0-18.0) L 11/11/24 11:05 Hct 35.4 % (42.0-52.0) L 11/11/24 11:00 POC Hct 35 % (42-52) L 11/11/24 11:05 MCV 92.2 fL (80.0-100.0) 11/11/24 11:00 MCH 30.7 pg (25.0-34.0) 11/11/24 11:00 MCHC 33.3 g/dL (32.0-36.0) 11/11/24 11:00 RDW Std Deviation 49.2 fL (36.4-46.3) H 11/11/24 11:00 RDW Coeff of Lorenza 14.6 % (11.5-14.5) H 11/11/24 11:00 Plt Count 157 K/uL (130-400) 11/11/24 11:00 MPV 11.0 fL (9.4-12.4) 11/11/24 11:00 Immature Gran % (Auto) 0.2 % 11/11/24 11:00 Neut % (Auto) 73.6 % 11/11/24 11:00 Lymph % (Auto) 20.3 % 11/11/24 11:00 H[place] % (Auto) 4.0 % 11/11/24 11:00 Eos % (Auto) 1.4 % 11/11/24 11:00 Baso % (Auto) 0.5 % 11/11/24 11:00 Neut # (Auto) 4.28 K/uL (1.40-6.50) 11/11/24 11:00 Lymph # (Auto) 1.18 K/uL (1.20-3.40) L 11/11/24 11:00 [place] # (Auto) 0.23 K/uL (0.11-0.59) 11/11/24 11:00 Eos # (Auto) 0.08 K/uL (0.00-0.50) 11/11/24 11:00 Baso # (Auto) 0.03 K/uL (0.00-0.20) 11/11/24 11:00 Immature Gran # (Auto) 0.01 K/uL (0.01-0.20) 11/11/24 11:00 POC Sodium 137 mmol/L (135-144) 11/11/24 11:05 Sodium 137 mmol/L (136-145) 11/11/24 11:00 POC Potassium 3.4 mmol/L (3.3-5.0) 11/11/24 11:05 Potassium 3.4 mmol/L (3.5-5.1) L 11/11/24 11:00 POC Chloride 89 mmol/L (101-112) L 11/11/24 11:05 Chloride 89 mmol/L (98-107) L 11/11/24 11:00 Carbon Dioxide 38 mmol/L (21-32) H 11/11/24 11:00 POC Total CO2 33 mmol/L (24-31) H 11/11/24 11:05 Anion Gap 10 (3-11) 11/11/24 11:00 POC Anion Gap 19.0 mmol/L (16-25) 11/11/24 11:05 POC BUN 21 mg/dl (7-18) H 11/11/24 11:05 BUN 23 mg/dl (6-23) 11/11/24 11:00 Creatinine 6.19 mg/dl (0.6-1.4) H* 11/11/24 11:00 POC Creatinine 6.3 mg/dl (0.6-1.3) H* 11/11/24 11:05 Est Cr Clr Drug Dosing 16.5 ml/min 11/11/24 11:00 eGFR 10.10 11/11/24 11:00 BUN/Creatinine Ratio 3.7 (10-20) L 11/11/24 11:00 Glucose 153 mg/dl (70-99(Fasting)) H 11/11/24 11:00 POC Glucose (other) 152 mg/dl (70-99) H 11/11/24 11:05 Calcium 8.7 mg/dl (8.6-10.3) 11/11/24 11:00 POC Ioniz Calcium Roland 0.96 mmol/l (1.12-1.32) L 11/11/24 11:05 Magnesium 2.5 mg/dl (1.7-2.4) H 11/11/24 11:00 Total Bilirubin 0.6 mg/dl (0.2-1.0) 11/11/24 11:00 AST 8 U/L (13-39) L 11/11/24 11:00 ALT 8 U/L (7-52) 11/11/24 11:00 Alkaline Phosphatase 121 U/L (34-104) H 11/11/24 11:00 Troponin I High Sens 34.9 pg/ml (0-20) H 11/11/24 12:48 Total Protein 7.6 gm/dl (6.0-8.3) 11/11/24 11:00 Albumin 4.2 gm/dl (3.4-5.0) 11/11/24 11:00 Globulin 3.4 gm/dl (2.5-4.0) 11/11/24 11:00 Albumin/Globulin Ratio 1.2 (0.9-2) 11/11/24 11:00 Lipase 27 U/L (11-82) 11/11/24 11:00 TSH < 0.010 uIu/ml (0.300-4.500) L 11/11/24 11:00 Free T4 1.44 ng/dl (0.61-1.60) 11/11/24 11:00 Impressions Chest X-Ray 11/11/24 11:01 XR chest 1V portable CLINICAL HISTORY: Chest pain, nonspecific COMPARISON STUDY: None FINDINGS: Heart size and pulmonary vasculature are normal. No consolidation or pleural effusion. No pneumothorax. IMPRESSION: No acute findings. ACT 112: Negative or not required by law. Electronically signed by: Ervin Chaidez M.D. 11/11/2024 11:14 AM Diagnostic Findings 11/11/2024 ECG: Atrial fibrillation with RVR. HR 145 bpm. Incomplete RBBB PG Care Time/CCT Total # of Minutes Spent Total Time Spent with Patient: Total time spent is greater than 50% in coordination of care (as documented) at patient's floor/unit and/or counseling patient: Coding Level of Care Code 91614 IN/OBS CONSULT LVL 5,80M Diagnoses End-stage renal disease on hemodialysis N18.6; Z99.2 Atrial fibrillation with rapid ventricular response I48.91 Hypothyroidism E03.9 Abdominal hernia as complication of peritoneal dialysis T80.89XA; K46.9 Iron deficiency anemia D50.9
[2024-11-11] MEDS ORDERED: Nursing to Pharmacy Communication SCH ×2 (16:45→17:45)
[2024-11-11] MEDS: METOPROLOL TARTRATE 25 MG TAB PO STA (16:50)
[2024-11-11] MEDS: DIGOXIN 0.125 MG TAB PO ONE (16:50)
--- NOTE | 2024-11-11 17:31 | Communication Note ---
Date of Service: November 11, 2024 The patient was seen by me.
[2024-11-11] MEDS: CALCIUM ACETATE 667 MG CAP/TAB PO SCH (17:56)
[2024-11-11] MEDS: SEVELAMER CARBONATE 800 MG TAB PO SCH (17:57)
[2024-11-11] MEDS: DIGOXIN 0.25 MG TAB PO ONE (19:38)
[2024-11-11] MEDS: METOPROLOL TARTRATE 50 MG TAB PO SCH (20:29)
[2024-11-11] MEDS: APIXABAN 5 MG TABLET PO SCH (20:29)
[2024-11-11] MEDS: GABAPENTIN 100 MG CAP PO ONE (22:49)
[2024-11-12] MEDS: MAGNESIUM SULFATE / D5W 1 GM/100 ML BAG IV SCH (03:40)
[2024-11-12] MEDS: AMIODARONE / D5W 150 MG/100 ML BAG IV STA (03:54)
[2024-11-12] MEDS ORDERED: 0.2 MICRON FILTER SET 1 EACH IV ONE ×2 (03:54→04:18)
[2024-11-12] MEDS: AMIODARONE / D5W 360 MG/200 ML BAG IV ONE (03:55)
[2024-11-12] MEDS: MIDAZOLAM HCL 1 MG/ML 2ML VIAL IV STA (04:04)
[2024-11-12] MEDS: SODIUM CHLORIDE 0.9% 500 ML IV ONE (04:25)
--- NOTE | 2024-11-12 04:31 | Communication Note ---
Date of Service: November 12, 2024 Code purple activated for patient Arrived to room and found to be in wide complex tachycardia rates in the 170s- 180s, Hypotensive to 80s-90s/40s-50s. Pt asymptomatic, mentating appropriately 500cc NSS bolus, 2g IV Mg2+, amiodarone bolus started Rate and rhythm were persistent and decision was made to cardiovert, procedure explained and verbal consent obtained from patient Given 2mg versed, 25mcg fentanyl Synchronized cardioversion performed @ 200J x1 shock with return to NSR, repeat EKG performed Tolerated procedure well Pt to finish bolus of fluid, finish mag infusion, started on amiodarone drip Resident Activity Tracking Resident Involvement: Resident Care Provided Care Provided: Adult Hospital Medicine
[2024-11-12] MEDS: AMIODARONE 150MG / 100ML D5W IV ONE (04:50)
[2024-11-12] MEDS: AMIODARONE 360MG / 200ML D5W IV ONE (04:50)
[2024-11-12] MEDS: LEVOTHYROXINE SODIUM 25 MCG TABLET PO SCH (06:03)
[2024-11-12 06:42] LABS: Hematocrit (blood only) 29.7 % (42.0-52.0); Hemoglobin 10.1 g/dl (14.0-18.0); Mean Corpuscular Hemoglobin 31.3 pg (25.0-34.0); Mean Corpuscular Volume 92.0 fL (80.0-100.0); Platelet Count 120 K/uL (130-400); RDW Standard Deviation 48.9 fL (36.4-46.3); Red Blood Count 3.23 M/uL (4.70-6.10); White Blood Count 4.95 K/ul (4.8-10.8)
[2024-11-12 07:06] LABS: Anion Gap 13.0 (3-11); Blood Urea Nitrogen 36.0 mg/dl (6-23); Calcium 8.6 mg/dl (8.6-10.3); Carbon Dioxide 31.0 mmol/L (21-32); Chloride 94.0 mmol/L (98-107); Creatinine Clr Calc Pharmacy 12.8 ml/min; Glucose 134.0 mg/dl (70-99(Fasting)); Magnesium 3.3 mg/dl (1.7-2.4); Potassium 3.9 mmol/L (3.5-5.1); Sodium 138.0 mmol/L (136-145)
[2024-11-12] MEDS: BUMETANIDE 1 MG TAB PO SCH (07:31)
[2024-11-12] MEDS: CINACALCET HCL 90 MG TAB PO SCH (07:38)
[2024-11-12] MEDS: NEPHROCAPS PO SCH (07:38)
[2024-11-12] MEDS: FUROSEMIDE 40 MG TAB PO SCH (07:39)
--- NOTE | 2024-11-12 08:49 | Nephrology Progress Note ---
Date of Service November 12, 2024 Assessment & Plan (1) End-stage renal disease on hemodialysis: Plan: * Volume status and electrolyte balance are acceptable at this time. No acute indication for hemodialysis today. Will schedule next dialysis treatment for AM. * Outpatient HD prescription: [facility] MWF FX CorAL 80, 3.5 hr, Qb 475, 2K 2Ca 1Mg Na 138 HCO3 37 EDW 96kg * Protect dialysis access - L upper arm AVF created 06/06/20 * Recommend HD diet * Provide Nephrocap daily * Monitor daily BMP (2) Atrial fibrillation with rapid ventricular response: Plan: * Management as per cardiology * Wide complex tachycardia s/p synchronized cardioversion w/ 200J x1 at 4 am today * Started on apixaban therapy * Continue PPI therapy due to history of MILLICENT (3) Hypothyroidism: Plan: * TSH undetectable at time of admission, free T4 within normal limits (4) Abdominal hernia as complication of peritoneal dialysis: Plan: * h/o periumbilical hernia (5) Iron deficiency anemia: Plan: * h/o MILLICENT. Reports negative EGD and colonoscopy. Has been on chronic PPI therapy Admission and Anticipated Discharge Date Admission Date: November 11, 2024 Subjective Mr. Rodrigez was evaluated in his hospital room this morning. He reports that he required cardioversion at 4 AM. He is now resting comfortably seated upright in a chair. She denies any angina, dyspnea. Review of Systems Constitutional: no fever Eyes: no problem reported Ear, Nose, Mouth, Throat: no problem reported Respiratory: no cough and no dyspnea Cardiovascular: + palpitations; no chest pain Gastrointestinal: no abdominal pain, no nausea, no vomiting and no diarrhea/loose stools Integumentary: no rash Neurologic: no problem reported Physical Exam Constitutional: no acute distress Eyes: PERRL, conjunctivae normal, anicteric sclerae ENMT: external ear and nose normal, oropharynx normal Neck: trachea midline, no thyromegaly Respiratory: normal respiratory effort, lungs clear to auscultation Cardiovascular: Rate/Rhythm: + tachycardic and + irregularly irregular Gastrointestinal (Abdomen): normal bowel sounds, soft, nontender, no hepatosplenomegaly Skin: no rashes, warm and dry Neurologic: no focal motor deficits Results & Data Vital Signs (Past 12 Hours) Vital Signs Temp Pulse Pulse Resp BP Pulse Ox O2 Del Method 11/12/24 07:49 36.4 C L 74 18 116/74 99 Room Air 11/12/24 05:00 75 15 97 Nasal Cannula 11/12/24 04:45 78 18 107/65 100 Nasal Cannula 11/12/24 04:30 74 16 112/70 96 Nasal Cannula 11/12/24 04:15 85 17 109/71 93 Nasal Cannula 11/11/24 22:14 36.6 C 93 H 17 108/72 98 11/11/24 22:03 95 H O2 Flow Rate FiO2 11/12/24 07:49 11/12/24 05:00 2 11/12/24 04:45 2 11/12/24 04:30 2 11/12/24 04:15 2 11/11/24 22:14 11/11/24 22:03 Laboratory Results Laboratory Results - last 24 hr 11/11/24 11/11/24 11/11/24 11:00 11:05 12:48 WBC 5.81 RBC 3.84 L Hgb 11.8 L POC Hgb 11.9 L Hct 35.4 L POC Hct 35 L MCV 92.2 MCH 30.7 MCHC 33.3 RDW Std Deviation 49.2 H RDW Coeff of Lorenza 14.6 H Plt Count 157 MPV 11.0 Immature Gran % (Auto) 0.2 Neut % (Auto) 73.6 Lymph % (Auto) 20.3 Edgar % (Auto) 4.0 Eos % (Auto) 1.4 Baso % (Auto) 0.5 Neut # (Auto) 4.28 Lymph # (Auto) 1.18 L Edgar # (Auto) 0.23 Eos # (Auto) 0.08 Baso # (Auto) 0.03 Immature Gran # (Auto) 0.01 POC Sodium 137 Sodium 137 POC Potassium 3.4 Potassium 3.4 L POC Chloride 89 L Chloride 89 L Carbon Dioxide 38 H POC Total CO2 33 H Anion Gap 10 POC Anion Gap 19.0 POC BUN 21 H BUN 23 Creatinine 6.19 H* POC Creatinine 6.3 H* Est Cr Clr Drug Dosing 16.5 eGFR 10.10 BUN/Creatinine Ratio 3.7 L Glucose 153 H POC Glucose (other) 152 H Calcium 8.7 POC Ioniz Calcium Roland 0.96 L Magnesium 2.5 H Total Bilirubin 0.6 AST 8 L ALT 8 Alkaline Phosphatase 121 H Troponin I High Sens 40.5 H 34.9 H Total Protein 7.6 Albumin 4.2 Globulin 3.4 Albumin/Globulin Ratio 1.2 Lipase 27 TSH < 0.010 L Free T4 1.44 Nasal Screen MRSA (PCR) Digoxin 11/11/24 11/12/24 Unknown 05:44 WBC 4.95 RBC 3.23 L Hgb 10.1 L POC Hgb Hct 29.7 L POC Hct MCV 92.0 MCH 31.3 MCHC 34.0 RDW Std Deviation 48.9 H RDW Coeff of Lorenza 14.5 Plt Count 120 L MPV 11.0 Immature Gran % (Auto) Neut % (Auto) Lymph % (Auto) Edgar % (Auto) Eos % (Auto) Baso % (Auto) Neut # (Auto) Lymph # (Auto) Edgar # (Auto) Eos # (Auto) Baso # (Auto) Immature Gran # (Auto) POC Sodium Sodium 138 POC Potassium Potassium 3.9 POC Chloride Chloride 94 L Carbon Dioxide 31 POC Total CO2 Anion Gap 13 H POC Anion Gap POC BUN BUN 36 H Creatinine 8.19 H* D POC Creatinine Est Cr Clr Drug Dosing 12.8 eGFR 7.22 BUN/Creatinine Ratio 4.4 L Glucose 134 H POC Glucose (other) Calcium 8.6 POC Ioniz Calcium Roland Magnesium 3.3 H Total Bilirubin AST ALT Alkaline Phosphatase Troponin I High Sens Total Protein Albumin Globulin Albumin/Globulin Ratio Lipase TSH Free T4 Nasal Screen MRSA (PCR) Negative Digoxin 1.3 PG Care Time/CCT Total # of Minutes Spent Total Time Spent with Patient: Total time spent is greater than 50% in coordination of care (as documented) at patient's floor/unit and/or counseling patient: Coding Level of Care Code 87225 SUB INP/OBS CARE 3/50MIN Diagnoses End-stage renal disease on hemodialysis N18.6; Z99.2 Atrial fibrillation with rapid ventricular response I48.91 Hypothyroidism E03.9 Abdominal hernia as complication of peritoneal dialysis T80.89XA; K46.9 Iron deficiency anemia D50.9
[2024-11-12] MEDS ORDERED: GABAPENTIN 100 MG CAP PO SCH ×2 (09:00→21:00)
--- NOTE | 2024-11-12 14:17 | Hospitalist Progress Note ---
"Date of Service November 12, 2024 Assessment & Plan (1) Atrial fibrillation with rapid ventricular response: (2) Elevated troponin: (3) End-stage renal disease on hemodialysis: (4) History of gastric ulcer: Talib Metcalf is a 54M with PMHx of ESRD of Dialysis, hx of gastric ulcer and HTN who presents with new onset afib RVR. #Afib RVR | Elevated troponin - with episode of wide complex tachycardia requiring emergent cardioversion 4am 11/12 New onset - EKG AFIB RVR rate 145 Troponin peaked at 40, suspect demand ischemia plus poor renal clearance from afib RVR Started on Eliquis Cardiology consulted - given metoprolol and digoxin. Stopped carvedilol. agree with use of Eliquis. Rec echo, may need to investigate elevated trop Echo pending TSH low, T4 normal - continue synthroid Patient wanting to be discharged - has not seen cardiology yet today, Dr. Bolanos will see but prefers he stays overnight. Patient is willing to wait for cardiology at this point, but also stating he is wiling to leave AMA. Patient did express verbal understanding that if he has a heart rhythm similar to last night that he could outside of the hospital. #ESRD on Dialysis Nephrology consulted - follows with Dr. Bowers, dialysis diet, nephrocap daily Continue Phosphate binder, cinacalcet and renvela Continue Bumex and lasix #HTN carvedilol d/c by cardiology, started on metoprolol Hold amlodipine and olmesartan with hypotension, room to change medicalization per cardiology #hx of gastric ulcer continue PPI monitor for bleeding with initation of eliquis Dispo: recommend continued inpatient stay, at the time of visit patient was willing to stay for cardiology visit dvt proh: eliquis Admission and Anticipated Discharge Date Admission Date: November 11, 2024 Supervising Physician Co-Signing Physician Notes Attending Attestation - Chart reviewed, care plan d/w PAOLA Mcmahon. I agree w/ the bauer components of her documentation. Events of early AM of today noted. Patient required emergent cardioversion for wide complex tachycardia - likely VT. s/p synchronized cardioversion with mandaen of NSR. Appreciate cardiology input & recs. Papo Wilson MD Subjective pateint seen sitting up in the chair - reports feeling normal. also reports that he was feeling normal sitting up in the chair yesterday when he was requiring cardioversion denies cp or shortness of breath Patient is very reluctant to stay in the hospital overnight tele - SR 70s with PVCs after cardioversion Review of Systems Review of Systems: All systems reviewed & are unremarkable except as noted in Subjective Physical Exam Physical Exam: General: NAD, VS as above Resp: normal respiratory effort, lungs clear to auscultation CV: RRR, no murmur, Abd: normal bowel sounds, non tender, no hepatosplenomegaly Extremities: Moves all extremities, no edema Neuro: A&O x3, Skin: intact, no lesions noted Results & Data Results & Data Vital Signs (Past 12 Hours) Vital Signs Temp Pulse Pulse Resp BP Pulse Ox O2 Del Method 11/12/24 14:00 68 11/12/24 10:50 97.3 F L 72 18 132/78 99 Room Air 11/12/24 10:10 80 11/12/24 07:49 97.5 F L 74 18 116/74 99 Room Air 11/12/24 05:00 75 15 97 Nasal Cannula 11/12/24 04:45 78 18 107/65 100 Nasal Cannula 11/12/24 04:30 74 16 112/70 96 Nasal Cannula 11/12/24 04:15 85 17 109/71 93 Nasal Cannula O2 Flow Rate FiO2 11/12/24 14:00 11/12/24 10:50 11/12/24 10:10 11/12/24 07:49 11/12/24 05:00 2 11/12/24 04:45 2 11/12/24 04:30 2 11/12/24 04:15 2 Laboratory Results cbc, chemistry and mag reviewed PG Care Time/CCT Total # of Minutes Spent Total Time Spent with Patient: Total time spent is greater than 50% in coordination of care (as documented) at patient's floor/unit and/or counseling patient: Coding Level of Care Code None Diagnoses Atrial fibrillation with rapid ventricular response I48.91 Elevated troponin R79.89 End-stage renal disease on hemodialysis N18.6; Z99.2 History of gastric ulcer Z87.11"
[2024-11-12 16:15] VITALS: BP 137/79; PULSE 73; RESP 20; TEMP 98.1; O2SAT 97
--- NOTE | 2024-11-12 17:03 | XCELERA ---
[id number]
--- NOTE | 2024-11-12 17:22 | Discharge Summary ---
Discharge Summary Date of Service November 12, 2024 Principal Dx & Hospital Course #1 = Principal Diagnosis (1) Atrial fibrillation with rapid ventricular response: (2) Elevated troponin: (3) End-stage renal disease on hemodialysis: (4) History of gastric ulcer: Plan Dixon is a 54M with PMHx of ESRD of Dialysis, hx of gastric ulcer and HTN who presents with new onset afib RVR. #Afib RVR | Elevated troponin - New onset - EKG AFIB RVR rate 145 on admission. with episode of wide complex tachycardia requiring emergent cardioversion 4am 11/12 Troponin peaked at 40, suspect demand ischemia plus poor renal clearance from afib RVR. TSH low, T4 normal - continue synthroid Started on Eliquis Cardiology consulted - given metoprolol and digoxin. Stopped carvedilol. agree with use of Eliquis. Rec echo, may need to investigate elevated trop. Patient was not seen by cardiology after the cardioversion. Patient had expressed wanting to leave and informed him he was not medically cleared. He did not want to wait any longer to be seen by cardiology and left AMA. Patient did express verbal understanding that if he has a heart rhythm similar to last night that he could outside of the hospital and that having afib increases his blood clot risk and still wished to leave AMA ELiquis and metorpolol were sent to his pharmacy. Encouraged him to call cardiology for follow up alessandra. #ESRD on Dialysis - no changes while inpatient - continue lasix and bumex, continue outpatient dialysis schedule. #HTN carvedilol d/c by cardiology, started on metoprolol Hold amlodipine and olmesartan with hypotension - resume at discretion of outpatient providers #hx of gastric ulcer continue PPI monitor for bleeding with initation of eliquis Dispo: patient left AMA Notes For Next Care Provider Medication Changes From Visit add metoprolol add eliquis stop carvedilol Admission HPI Per Admitting Provider Dixon is a 54M with PMHx of ESRD of Dialysis, and HTN who presents with new onset afib RVR. Reports that his watch was alerting him to abnormal HR on monday. Did feel lightheaded with position changes during this also with poor appetite. Denies hx of afib. Reports in the ER he is feeling fine and reluctant to stay overnight in the hospital. Denies CP or shortness of breath. torsten from [place] works locally in [employer]. ER course: Eliquis PO 5mg x 1 Metoprolol 5mg IV Discharge Plan Discharge Items Patient Disposition: Against Medical Advice Reason For Visit: AFIB, RVR Condition on Discharge: Fair Activity: Resume your previous activity Weightbearing: Full weightbearing Non-emergency contact: Primary Care Provider and Clamp Truck Driver Follow-up/Referrals: Bruce Babb MD [Physician] - (recommend cardiology follow up 1-2 weeks ) PCP,NO [Primary Care Provider] - Addtl Operations Examiner Provider Instructions: Mr Rodrigez, You were hospitalized after having an abnormal heart rhythm called afib. This then turned into a wide complex tachycardia requiring emergent cardioversion. Cardiology was consulted on your case but did not give final recommendations as you left AMA. I have sent in ELiquis - a blood thinner. Afib increases your risk of blood clot, stroke and . This is to help prevent that. Cardiology has changed your carvedilol to metoprolol. Recommend you call the number above for cardiology follow alessandra. The abnormal heart rhythm could occur again and has high risk of being fatal. If you have more abnormal alerts on your watch, recommend returning to the ER Hold losartan until we know how your blood pressure reacts on new medication. Pending Studies at Discharge: Yes (echo) Stand-Alone Forms: My [employer], Smoking Cessation Skilled Items Patient informed of condition?: Yes DNR: No Medications and DC Order Prescriptions: New Eliquis 5 mg Tablet 5 mg PO BID Qty: 60 0RF metoprolol tartrate 50 mg Tablet 50 mg PO BID Qty: 60 0RF Continued furosemide 40 mg tablet 40 mg PO DAILY bumetanide 2 mg tablet 4 mg PO DAILY levothyroxine 25 mcg tablet 25 mcg PO DAILY omeprazole 20 mg capsule,delayed release(DR/EC) 20 mg PO DAILY gabapentin 100 mg capsule 100 mg PO DAILY cinacalcet 90 mg tablet 90 mg PO DAILY calcium acetate(phosphat bind) 667 mg capsule 266 mg PO WM Rx Instructions: 4 caps po TIDM; 1 cap TID with snacks sevelamer carbonate 800 mg tablet 3,200 mg PO WM Rx Instructions: 4 tabs po TIDM; 1 tab po BID w/snacks Spiriva Respimat 2.5 mcg/actuation mist 1 inh INHALATION DAILY PRN (Reason: sob) calcium acetate(phosphat bind) 667 mg Tablet 1,337 mg PO DIRECTED Rx Instructions: with snacks sevelamer carbonate 800 mg Tablet 1,600 mg PO USEASDIRECTD Rx Instructions: with snacks Held olmesartan 20 mg tablet 20 mg PO DAILY Hold Instructions: Provider's Order Discontinued carvedilol 25 mg tablet 25 mg PO BID Discharge Orders: Left Against Medical Advice (Routine); Ordered 11/12/24 Ordered By: Amanda Mcmahon Admission Data Admit Date/Time: 11/11/24 13:42 Attending Provider: Papo Wilson Admit Provider: Rudy Zuniga Primary Care Provider: PCP,NO Other Providers: Bruce Babb; Juwan Pacheco Hospital Stay Data Consultations 11/11/24 12:54 Consult Cardiology Routine 11/11/24 13:06 ED Decision to Admit Stat 11/11/24 15:21 Consult Nephrology Routine Pending Results Patient Have Any Pending Studies at Discharge: Yes (echo) Discharge Instructions Given to Patient (Per Discharging Provider) Mr. Rodrigez You were hospitalized after having an abnormal heart rythm called afib. This then progressed to a wide complex tachycardia that required cardioversion. Cardiology was consulted on your case but they were not able to give final recommendations due to your desire to leave AMA The afib puts you at high risk for blood clot, strokes and . You have been started on Eliquis to prevent this. This has been sent to your pharmacy. You abnormal heart rhythms can be very dangerous if not treated and can lead to . You have been switched from carvedilol to metoprolol. Recommend you follow up with cardiology alessandra - their number is above. You will have to call to set up an appointment. Supervising Physician Co-Signing Physician Notes Attending Attestation and Discharge Note: Chart reviewed, discharge care plan d/w PAOLA Mcmahon. I agree w/ the bauer components of her documentation. Of note- I did not perform a bedside visit or exam on day of him leaving against medical advice (AMA). 54yo male with ESRD on HD, hypothyroidism. Also had episode of PAF in 2023. Presented with rapid a.fib after he was found to be hypotensive & tachycardic following his HD session the morning of admission. Upon admission he was started on Eliquis and rate control with metoprolol & digoxin was initiated. AM of 11/12 a dwayne fritz was called due to wide complex tachycardia. He was mildly hypotensive during such but mentating. EKG was consistent with ventricular tachycardia. Given amiodarone bolus followed by drip. He also received emergent cardioversion for the probable VT. The synchronized cardioversion fortunately restored NSR. [facility] Cardiology was consulted and also felt that the wide complex tachycardia was VT as opposed to a.fib with aberrancy. Echocardiogram showed EF 55-60% and normal RV function. Early evening of 11/12 the patient asked to be discharged. He was counseled that in light of the suspected VT requiring cardioversion earlier that day that he should not discharge. He was counseled that cardiology wanted to do additional investigation about the etiology of VT, etc. He still insisted on discharge at that time. Thus, he was asked to sign an "AMA" (against medical advice) form. In light of leaving AMA a firm plan for his a.fib/VT was not completed. It will be the patient's responsibility to f/u with his PCP as well as cardiology for these cardiac issues. He was counseled about the risk of morbidity and mortality with VT. Of note - patient's TSH was undetectable. This is in the setting of synthroid use at home. The iatrogenic hyperthyroid state could be contributing to his a.fib. Defer to his outpatient providers management of this problem. Papo Wilson MD Total Time Total Time Spent Total Time Spent (In Minutes): Time spent day of discharge 40 minutes including direct patient care, medication reconciliation, documentation, review of labs and images, and coordination of care. Coding Level of Care Code 26600 INP/OBS DISCH >30 MIN Diagnoses Atrial fibrillation with rapid ventricular response I48.91 Elevated troponin R79.89 End-stage renal disease on hemodialysis N18.6; Z99.2 History of gastric ulcer Z87.11
--- NOTE | 2024-11-12 17:26 | Cardiology Progress Note ---
Date of Service November 12, 2024 Assessment & Plan (1) Atrial fibrillation with rapid ventricular response: (2) Anticoagulant long-term use: (3) Elevated troponin: Plan 1. Atrial fibrillation: He presents with what appears to be relatively recent onset of atrial fibrillation at a rapid heart rate. Based on symptoms it seems that it is at least 3 days in duration, possibly longer. It may also be paroxysmal although at rest in the hospital in bed he is not aware of the rhythm so when he feels that he is not having the arrhythmia he may still be having it. He has not had paroxysmal atrial fibrillation in the hospital, so it may be persistent. At this point I would try rate control, despite some degree of hypotension I would like to get him on beta-blockers for rate control and I am going to switch from carvedilol to metoprolol succinate. I will make that switch this evening at a roughly comparable dose but we may get better rate control with that. I am also going to add digoxin to his regimen. 2. Anticoagulation: He will need long-term anticoagulation, I agree with the use of Eliquis. 3. Elevated troponin: His troponin is minimally elevated, but we may need to investigate it, as far as I know he does not have a history of coronary artery disease but certainly could have it. 4. Hypotension, his blood pressure is somewhat low which is unusual for him based on his history, he is on a number of antihypertensives and this may be related to his atrial arrhythmia. I would like to get an echocardiogram. Admission and Anticipated Discharge Date Admission Date: November 11, 2024 Subjective Events of early this morning and today reviewed. When I came up to see the patient he had left AMA, I was unable to come up sooner due to a tight schedule of procedures and testing that required my attention. He developed sustained ventricular tachycardia at around 0343 this morning, I do not believe it was atrial fibrillation or atrial flutter with aberrancy as it initiates with a fusion beat and is a monomorphic sustained wide-complex arrhythmia at a rate of just under 200 bpm when it started. He was in the arrhythmia for about half an hour, it terminated by cardioversion at around 4:16 AM. The conversion converted the rhythm to sinus rhythm. While he was in it there was no change in morphology, the rate slowed somewhat toward the end, possibly because he received amiodarone. I am told he was asymptomatic. The arrhythmia is a right bundle pattern with a left axis based on the derived leads from telemetry. I had communicated indirectly with the primary care team throughout the day and I thought he should stay for further evaluation to try to determine a cause of the arrhythmia. I did review his echocardiogram myself earlier in the day I did not think his echocardiogram was normal although it was read that way. I thought he had some mild left ventricular dysfunction but it was not severe. Results & Data Vital Signs (Past 12 Hours) Vital Signs Temp Pulse Pulse Resp BP Pulse Ox O2 Del Method 11/12/24 16:14 36.7 C 73 20 137/79 97 Room Air 11/12/24 14:00 68 11/12/24 10:50 36.3 C L 72 18 132/78 99 Room Air 11/12/24 10:10 80 11/12/24 07:49 36.4 C L 74 18 116/74 99 Room Air PG Care Time/CCT Total # of Minutes Spent Total Time Spent with Patient: Total time spent is greater than 50% in coordination of care (as documented) at patient's floor/unit and/or counseling patient: Coding Level of Care Code None Diagnoses Atrial fibrillation with rapid ventricular response I48.91 Anticoagulant long-term use Z79.01 Elevated troponin R79.89
[2024-11-12] MEDS ORDERED: MIDAZOLAM HCL 5 MG/ML 2ML VIAL IV ONE (17:59)
[2024-11-12] MEDS ORDERED: SODIUM CHLORIDE 0.9% 10ML FLUSH IV ONE (17:59)
[2024-11-13] MEDS ORDERED: SODIUM CHLORIDE 0.9% 1,000 ML IV PRN (07:00)
[2024-11-13] MEDS ORDERED: EPOETIN ALFA 10,000 UNITS/ML VIAL IV ONE (07:00)
--- NOTE | 2024-11-15 13:54 | Electrocardiogram Report ---
Test Reason : Blood Pressure : */* mmHG Vent. Rate : 145 BPM Atrial Rate : * BPM P-R Int : * ms QRS Dur : 104 ms QT Int : 340 ms P-R-T Axes : * 96 -78 degrees QTcB Int : 528 ms Atrial fibrillation with rapid ventricular response Rightward axis Incomplete right bundle branch block Abnormal ECG No previous ECGs available Confirmed by Bruce Babb ([id number]) on 11/15/2024 1:54:25 PM Referred By: Oumar Gresham Confirmed By: Bruce Babb
--- NOTE | 2024-11-15 14:59 | Electrocardiogram Report ---
Test Reason : Blood Pressure : */* mmHG Vent. Rate : 174 BPM Atrial Rate : * BPM P-R Int : * ms QRS Dur : 142 ms QT Int : 304 ms P-R-T Axes : * -80 102 degrees QTcB Int : 517 ms Ventricular tachycardia Left axis deviation Right bundle branch block Abnormal ECG When compared with ECG of 11-Nov-2024 10:58, (unconfirmed) Wide QRS tachycardia has replaced Atrial fibrillation Confirmed by Bruce Babb ([id number]) on 11/15/2024 2:59:05 PM Referred By: Oumar Gresham Confirmed By: Bruce Babb
--- NOTE | 2024-11-15 14:59 | Electrocardiogram Report ---
Test Reason : Blood Pressure : */* mmHG Vent. Rate : 81 BPM Atrial Rate : 81 BPM P-R Int : 176 ms QRS Dur : 110 ms QT Int : 404 ms P-R-T Axes : 31 94 -25 degrees QTcB Int : 469 ms Normal sinus rhythm Left atrial enlargement Rightward axis Incomplete right bundle branch block Possible Inferior infarct , age undetermined Abnormal ECG When compared with ECG of 12-Nov-2024 03:47, (unconfirmed) Sinus rhythm has replaced Ventricular tachycardia Vent. rate has decreased by 93 bpm Confirmed by Bruce Babb ([id number]) on 11/15/2024 2:59:48 PM Referred By: Oumar Gresham Confirmed By: Bruce Babb
== END 2024-11-12 18:00 | disposition left against medical advice (07) | DRG 308 ==
LOC: SUATTDRO → ED 10:34 → INTOOBSV 13:42 → SUATTDRO 13:42 → 2S 13:42